=== PATIENT | female | born 1940 ===

== ENCOUNTER → 2019-10-04 | Outpatient (CLI) | payer OTHER ==
[~2019-10-04] VITALS: Ht 165.1 cm; Wt 61.2 kg
[~2019-10-04] MED LIST: ALIGN4 MG PO; CALCIUM 600 +1 EAC1 PO; CENTRUM SILVER1 EAC5 PO; FISH OIL 1,2001 EAC4 PO; NEURONTIN100 MG PO; NEURONTIN300 MG PO; PROLIA60 MG/1 ML SUBQ; REMICADE 1100 MG/VIA IV; SIMVASTATIN40 MG PO; VITAMIN C500 M2 PO
[2019-10-04 09:49] VITALS: BP 152/84
--- NOTE | 2019-10-04 10:27 | NUR ---
Pain Clinic Assessment: 1. History of Osteoarthritis: SPINE History of Rheumatoid Arthritis: DENIES 2. Height: 5 ft. 5 in. 165.1 cm. Weight: 135.0 lb. oz. 61.236 kg. Patient's BMI: 22.5 3. Vital Signs: BP: 152/84 Pulse: 81 Resp: 16 Temp: 02 Sat: 100 ECG Mon: 4. Pain Intensity: 4-6 5. Fall Risk: Dizziness: N Needs help standing or walking: N Fallen in the last 3 months: N Fall risk comments: 6. Patient on Blood Thinner: None 7. History of Hypertension: Y 8. Opioid Therapy greater than 6 weeks: N Opiate Contract Signed: 9. Risk Assessment Tool Provided: 10. Functional Assessment Tool: 11. Recreational Drug Use: Never Drug Type: Tobacco Use: Never Smoker Tobacco Type: Amount or Packs/day: How Many Years: Alcohol Use: Yes Frequency: Monthly Quant:
--- NOTE | 2019-10-10 13:05 | HPC ---
[facility] [address] [place] [address] PAIN MANAGEMENT CONSULTATION Name: EVANGELINACONCHITA Room #: REG DARIUSZ Jerson#: [id number] Admission: 10/04/19 Attend Phys: Joni Morgan DO Discharge: Date of : 39 Report #: [id number] THIS REPORT FOR: //name// CC: KWAME Marrero DO DATE OF SERVICE: 10/04/2019 REFERRING PHYSICIAN: Cesario Montanez MD CHIEF COMPLAINT: Right lower extremity pain. HISTORY OF PRESENT ILLNESS: As you know, patient is a very pleasant 78-year-old female who has been referred to our service for chronic right L4 radiculopathy. The patient underwent extensive surgery with Dr. Montanez essentially fusing the patient from L3 through L5. The patient did well postoperatively, but began to experience right leg pain radiating all the way to the knee. She underwent MRI 07/28/2019 which showed severe right foraminal stenosis with abutment of the exiting L5 nerve root consistent with the patient's symptoms. She sought further evaluation through her neurosurgery team who advised the patient to try more conservative treatment options. She has begun physical therapy, but has noted no improvement in symptoms. She states that the pain that she has been experiencing is similar to the pain that she had prior to surgery. She was started on gabapentin by her primary care physician and adjustments were made with the nurse practitioner, Didi Hawk at visit of 09/26/2019. The patient was referred to our clinic to discuss more conservative treatment options. There was a request of epidural injection to be provided possibly even looking towards spinal cord stimulator implantation. The patient indicates pain is continuous. She describes the pain as burning, shooting, aching, stabbing, numbness and tingling. Places current pain score anywhere from 4-6/10, daily average at 5/10, worst pain has been 7/10. 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 Pain is improved with lying down in bed. She has been referred to our service to discuss treatment options for chronic L4 radiculopathy on the right side. PAST MEDICAL HISTORY: 1. Crohn's disease. 2. Varicose veins. 3. Hypercholesterolemia. 4. Osteoporosis. 5. Central canal and neural foraminal stenosis [place] [address] PAIN MANAGEMENT CONSULTATION Name: CONCHITA HUTCHINSON Room #: REG GONZALEZHamilton Arthur#: [id number] Admission: 10/04/19 Attend Phys: Joni Morgan DO Discharge: Date of : 39 Report #: [id number] PAST SURGICAL HISTORY: 1. Appendectomy. 2. Bilateral cataract extractions. 3. Colonoscopy. 4. Blepharoplasty. 5. Decompressive laminectomy and fusion L3 through L5. SOCIAL HISTORY: She denies tobacco. She is a reformed smoker, she quit in 1991. Denies IV or illicit drug use. She admits to an occasional alcohol beverage. She is actively involved in an exercise program prior to surgery 3 times a week and has tried to return to this activity. She is accompanied by her present in room today. ALLERGIES: NEOMYCIN, BACITRACIN, POLYMYXIN. CURRENT MEDICATIONS: Simvastatin 40 mg once a day, gabapentin 300 mg p.o. at bedtime, gabapentin 100 mg p.o. q.a.m., calcium carbonate 1 tab per day, omega-3 fish oil 1200 mg once a day, ascorbic acid 500 mg 2 tabs once a day, multivitamin 1 tab per day, Prolia 60 mg subcutaneous as directed, Remicade 100 mg intravenously as directed, Align 4 mg once a day. IMAGING: MRI of the lumbar spine obtained 07/28/2019 shows postoperative changes of posterior decompression laminectomy from L3 through L5. There is posterior spinal fusion from L3 through L5, slight anterolisthesis of L3 on L4 and L4 on L5. There is also noted severe right foraminal stenosis with abutment of the exiting right L4 nerve root. PQRS: She has no known osteoarthritis of the lumbar spine, bilateral hands. Denies rheumatoid arthritis. She is placing pain intensity anywhere from 4-6/10. She is not a fall risk, has not had a fall in last 3 months. She is not on blood thinners. She is treated for hypertension. She is not on any opioids and has a low opioid addiction potential. Pain impact score is 12/70 indicating mild interference of daily activities secondary to pain. REVIEW OF SYSTEMS: Positive for wearing corrective eyewear, hearing loss with tinnitus, nocturia, changes in hair and nail texture, chronic right lower extremity pain, situational depression. All other review of systems negative per 12-point review of systems, and those listed in history of present illness. PHYSICAL EXAMINATION: VITAL SIGNS: Blood pressure 152/84, pulse is 81, respiratory rate 16 and unlabored. The patient is 100% on room air. Height 5 feet 5 inches tall, weight 135 pounds, BMI calculated 22.5. GENERAL: Well-developed, well-nourished, well-hydrated 78-year-old female appearing her stated age, placing current pain score at 4-6/10. [address] [address] PAIN MANAGEMENT CONSULTATION Name: CONCHITA HUTCHINSON Room #: [facility]#: [id number] Admission: 10/04/19 Attend Phys: Joni Morgan DO Discharge: Date of : 39 Report #: [id number] HEENT: Normocephalic, atraumatic. Pupils equal, round, reactive to light. Extraocular muscles are intact. Sclerae nonicteric without injection. NEUROLOGIC: Cranial nerves 2-12 grossly intact. Speech fluent. The patient deemed an excellent historian. LUNGS: Clear, no wheeze, rhonchi or rales. CARDIOVASCULAR: Regular. No appreciable gallop, no rub. ABDOMEN: Soft, nontender, nondistended. EXTREMITIES: Show no clubbing, no cyanosis, and no edema. MUSCULOSKELETAL: Lower extremity strength appears equal and symmetrical 5/5. There is slight giveaway strength noted with hip flexion, knee extension on the right when compared to left, this is due to pain generation. Deep tendon reflexes 2+/4 patella and Achilles. Ankle clonus negative. Babinski is negative. The patient has a steady gait without assistance, but is unable to tandem walk. She has difficulty with heel toe walking due to increased pain on the right leg. Seated straight leg raising positive on the right. Supine straight leg raising positive on the right. Kaitlin's test is negative. Modified Gaenslen's positive for axial low back pain. There is well-healed surgical scar of the lumbar spine. ASSESSMENT: 1. Lumbar radiculopathy. 2. Severe neural foraminal stenosis of the lumbar spine. 3. Post-surgical pain. 4. Chronic intractable pain. PLAN: 1. Based on today's physical exam and history the patient has provided, the description the patient uses in regards to pain as well as the location of symptoms, it would appear the patient is suffering from L4 right lumbar radiculopathy. This does correlate with the severe neural foraminal stenosis noted on the MRI of 07/28/2019. The patient has undergone extensive surgery to decompress the central canal, but there remains neural foraminal stenosis on the right side that is causing current pain in this patient's case. We discussed with the patient the treatment options, though they are limited given the severity of the foraminal stenosis at that level. We discussed the following with the patient today. We discussed treatment options could include the physical therapy, stretching exercises and traction techniques the patient is currently undergoing. This could be helpful over a long period of time, yet the patient has not seen any benefit over the past couple of weeks with this treatment. She could continue and then maybe some benefit. We discussed the requested epidural injection, which unfortunately cannot be provided without complications. Given the recent surgery in the central canal, precluding us from providing traditional epidural injection and the severe stenosis of the foramen at the right L4-L5 level, which precludes us from providing a transforaminal epidural injection as the nerve is [address] [address] PAIN MANAGEMENT CONSULTATION Name: CONCHITA HUTCHINSON Room #: REG CLHamilton Arthur#: [id number] Admission: 10/04/19 Attend Phys: Joni Morgan DO Discharge: Date of : 39 Report #: [id number] trapped within the severe changes of the neural foramen, making it impossible to place a needle to gain access to the epidural space at this level. We discussed spinal cord stimulator as an option for treatment. We also discussed medication management with adjustments in neuropathic medications and ultimately we discussed foraminotomy of the L4-L5 level on the right. After a long discussion of treatment options with the patient taking over 44 minutes of time, we then discussed direction of treatment she wishes to move forward with. 2. We will make adjustments in the patient's neuropathic pain medication by increasing her gabapentin, we recommend moving from 300 mg at night to 600 mg at night for the next 5 nights, continue this medication for 5 nights, if no side effects such as sleepiness, disorientation, confusion, mental slowing, then escalate to 900 mg, continue for another 5 nights no improvement in symptoms, no side effects, then continue 1200 mg. As you are aware efficacy of this medication can be anywhere from [address] to 3600 mg, adjustments in this medication can be done, but we would recommend a slow titration to reduce the potential of side effects. The patient was advised if she notes any side effects to reduce to the dose prior to the side effects, continue that dose and contact our clinic. 3. We did discuss with the patient the findings of the 06/2019 imaging that shows the severe foraminal stenosis abutting the L4 nerve root on the right. This is the source of the patient's symptoms from a surgical standpoint, we discussed a spinal cord stimulator, which would provide improvement in symptoms potentially, but there is a possibility that the foraminal stenosis noted can progress, though this will be a protracted process given the fact that patient has had a fusion and thus there is no movement at the facet joint. We also discussed with the patient foraminotomy to open up the area. According to the patient, she would like to "just fix this." I did advise the patient that conservative treatment would be recommended at this point if that is ineffective, then potentially look to a foraminotomy. The patient was agreeable. 4. We will see the patient back in followup visit in approximately 2 to 2.5 weeks. We wish to give the neuropathic medication a chance to begin to see some efficacy. We are hopeful the patient will see good benefit without any significant side effects. We will discuss when she returns the possibility of a spinal cord stimulator, so at this point the patient is not considering that as an option as she does not wish to undergo another surgery to "just cover it up when it could be potentially fixed." She will need to discuss this with Dr. Montanez if foraminotomy is considered. 5. We wish to thank nurse practitioner, Didi Hawk and Dr. Cesario Montanez for the opportunity to see this patient in consultation. We will keep you apprised of response to treatment as we address her right L4 radiculopathy. Again, we wish to thank you for the opportunity to see this patient in consultation. <ELECTRONICALLY SIGNED> By: Joni Morgan DO 10/10/19 1305 [id number] Joni Morgan DO /nt
== END ==
LOC: PAIN 06:55
DX: G89.4 Chronic pain syndrome (principal); M81.0 Age-related osteoporosis without current pathological fracture; E78.00 Pure hypercholesterolemia, unspecified; M48.061 Spinal stenosis, lumbar region without neurogenic claudication; M54.16 Radiculopathy, lumbar region; Z79.899 Other long term (current) drug therapy; Z88.8 Allergy status to other drugs, medicaments and biological substances

== ENCOUNTER → 2019-10-18 | Outpatient (CLI) | payer OTHER ==
[~2019-10-18] VITALS: Ht 165.1 cm; Wt 62.9 kg
[2019-10-18 08:31] VITALS: BP 147/76
--- NOTE | 2019-10-18 08:47 | NUR ---
Pain Clinic Assessment: 1. History of Osteoarthritis: SPINE History of Rheumatoid Arthritis: DENIES 2. Height: 5 ft. 5 in. 165.1 cm. Weight: 138.6 lb. oz. 62.868 kg. Patient's BMI: 23.1 3. Vital Signs: BP: 147/76 Pulse: 73 Resp: 16 Temp: 02 Sat: 100 ECG Mon: 4. Pain Intensity: 3 5. Fall Risk: Dizziness: Y Needs help standing or walking: N Fallen in the last 3 months: N Fall risk comments: 6. Patient on Blood Thinner: None 7. History of Hypertension: Y 8. Opioid Therapy greater than 6 weeks: N Opiate Contract Signed: 9. Risk Assessment Tool Provided: 10. Functional Assessment Tool: 11. Recreational Drug Use: Never Drug Type: Tobacco Use: Never Smoker Tobacco Type: Amount or Packs/day: How Many Years: Alcohol Use: Yes Frequency: Quant:
--- NOTE | 2019-10-24 16:27 | HPC ---
[facility] [place] [address] PAIN MANAGEMENT CONSULTATION Name: CONCHITA HUTCHINSON Room #: REG DARIUSZ Jerson#: [id number] Admission: 10/18/19 Attend Phys: Joni Morgan DO Discharge: Date of : 39 Report #: [id number] THIS REPORT FOR: //name// CC: Dottie Montanez MD DATE OF SERVICE: 10/18/2019 CHIEF COMPLAINT: Right lower extremity pain. HISTORY OF PRESENT ILLNESS: As you know, the patient is a very pleasant 78-year-old female referred to our service for chronic right L4 radiculopathy. She has undergone extensive surgeries with Dr. Montanez, fusing the patient from L3 through L5. Unfortunately, she continues to experience neuropathy. She was seen in consultation per the request of Dr. Cesario Montanez on 10/04/2019 where we spent a significant amount of time discussing options for treatment. She chose to initiate neuropathic medication. She returns today in followup visit stating she is taking four of the gabapentin 300 mg tabs at night and is feeling somewhat somnolent. She wishes to make adjustments in the therapy to reduce her daytime somnolence. She is reduced down to 2 tabs at night per our request via telephone conversation and the side effects have dissipated. She returns to discuss options for treatment. ALLERGIES: NEOMYCIN, BACITRACIN, POLYMYXIN B. CURRENT MEDICATIONS: See chart. SOCIAL HISTORY: The patient denies tobacco, alcohol, IV or illicit drug use. She is unaccompanied today. IMAGING: No new imaging available. PQRS: The patient has osteoarthritic changes of the lumbar spine, bilateral hands. Denies rheumatoid arthritis. The patient is placing pain score 3/10. She is not at fall risk, has not had a fall in the last 3 months. She is not on blood thinners, but is treated for hypertension. She is not on chronic opioids and has a low opioid addiction potential. Pain impact score 35/70, moderate interference of daily activities secondary to pain. PHYSICAL EXAMINATION: VITAL SIGNS: Blood pressure 147/76, pulse 73, respiratory rate 16 and unlabored. The patient is 100% on room air. Height 5 feet 5 inches tall, weight 138.6 pounds, BMI calculated 23.1. GENERAL: Well-developed, well-nourished, well-hydrated 78-year-old female appearing stated age, pain is rated at 3/10. [address] [address] PAIN MANAGEMENT CONSULTATION Name: CONCHITA HUTCHINSON Room #: REG CLI [facility]#: [id number] Admission: 10/18/19 Attend Phys: Joni Morgan DO Discharge: Date of : 39 Report #: [id number] HEENT: Normocephalic, atraumatic. Pupils equal, round, reactive to light. EXTREMITIES: Show no clubbing, no cyanosis, and no edema. MUSCULOSKELETAL: Lower extremity strength equal and symmetrical 5/5, intact to light touch from L1 through S2 dermatomes. Seated straight leg raising negative. Supine straight leg raising positive. Kaitlin's test is negative. Modified Gaenslen's positive for axial low back pain. ASSESSMENT: 1. Symptomatic lumbar radiculopathy. 2. Severe and progressively worsening neural foraminal stenosis of lumbar spine. 3. Postsurgical pain. 4. Chronic intractable pain. PLAN: 1. The patient returns today in followup visit indicating that four gabapentin 300 mg tablets at night are causing somnolence in the daytime hours, lasting for a couple of hours up to about 9:00 in the morning. We will make the following adjustments in her medication in hopes of reducing her side effects and improving analgesic benefit during the daytime hours. The following changes were made. 2. The patient will reduce to gabapentin 300 mg 2 tabs p.o. at bedtime. I recommend 2 nights of this medication, confirm that the side effects of medication have dissipated at that level. If this has, she will then start 1 tab in the morning, 2 tablets at night for 7 nights, continuing the medication if no side effects and no improvement in symptoms. If no improvement and no side effects, then continue to 1 tab in the morning, 1 tablet at noon, 2 tabs at night and continue that for 7 days. If the gabapentin causes continued side effects, but she does note improvements, we could look towards rotating to Lyrica, Cymbalta, nortriptyline or amitriptyline as possible treatment course. She wishes to remain with the gabapentin at this time, she will contact our clinic in regards to the response. 3. A prescription was not necessary today as the patient does have medication available given at our visit of 10/04/2019. She will continue the medication as directed above. 4. We will see the patient back in followup visit in 1 month. <ELECTRONICALLY SIGNED> By: Joni Morgan DO 10/24/19 [id number] [id number] Joni Morgan DO /nt
== END ==
LOC: PAIN 06:57
DX: M48.061 Spinal stenosis, lumbar region without neurogenic claudication (principal); M54.16 Radiculopathy, lumbar region; G89.29 Other chronic pain